=== PATIENT | male | born 1960 | race Caucasian/White ===

== ENCOUNTER 2021-05-26 14:29 | Emergency (ER) | payer OTHER ==
[~2021-05-26 14:29] MED LIST: ASPIRIN EC81 MG PO; CATAPRES0.3 MG PO; COZAAR50 MG PO; IMDUR ER TAB 3030 MG PO; LIPITOR TAB 2020 MG PO; METOPROLOL TART25 MG PO; PRAVACHOL40 MG PO; PROTONIX40 MG PO
[2021-05-26 16:03] LABS: HEMOGLOBIN 14.3 gm/dl (14.0-17.5); RED BLOOD COUNT 3.88 M/UL (4.20-5.50); WHITE BLOOD COUNT 12.3 K/UL (4.5-11.0)
== END 2021-05-26 19:31 | disposition home or self-care (01) ==
LOC: ER1 14:29
PROVIDERS: Physician Assistant Medical
DX: S37.009A Unspecified injury of unspecified kidney, initial encounter (principal); I10 Essential (primary) hypertension; E78.5 Hyperlipidemia, unspecified; I25.2 Old myocardial infarction; Z79.899 Other long term (current) drug therapy; F17.200 Nicotine dependence, unspecified, uncomplicated; Z20.822 Contact with and (suspected) exposure to COVID-19; X58.XXXA Exposure to other specified factors, initial encounter
CPT/HCPCS: 71045; 80053; 82550; 82553; 83874; 84484; 85025; 93005; 99285; U0002

== ENCOUNTER → 2021-12-27 | Outpatient (CLI) | payer MEDICARE, OTHER | LOC: KOH-I 09:12 | DX: M79.671 Pain in right foot (principal); M79.672 Pain in left foot; M19.072 Primary osteoarthritis, left ankle and foot | CPT/HCPCS: 73630 ==

== ENCOUNTER → 2022-01-25 | Outpatient (CLI) | payer MEDICARE, OTHER | LOC: KOH-I 11:46 | DX: M21.6X2 Other acquired deformities of left foot (principal); M72.2 Plantar fascial fibromatosis | CPT/HCPCS: 73718 ==